=== PATIENT | female | born 1995 | race Caucasian/White ===

== ENCOUNTER 2024-06-19 19:21 | Inpatient (IN) | payer BC, SELFPAY ==
[2024-06-19 19:52] VITALS: BP 134/86; PULSE 108
[2024-06-19 20:55] LABS: Bilirubin Urine NEGATIVE (NEGATIVE); Blood Urine NEGATIVE (NEGATIVE); Clarity Urine CLEAR (CLEAR); Color Urine LT. YELLOW (YELLOW); Glucose Urine UA NEGATIVE (NEGATIVE); Ketones Urine NEGATIVE (NEGATIVE); Leukocyte Esterase Urine NEGATIVE (NEGATIVE); Nitrite Urine NEGATIVE (NEGATIVE); Protein Urine NEGATIVE (NEG/TRACE); Specific Gravity Urine <=1.005 (1.005-1.025); Urine Microscopic Indicated NO; Urobilinogen Urine 0.2 EU/dL (0.2-1.0)
[2024-06-19 21:01] LABS: Hematocrit 33.9 % (36.0-48.0); Hemoglobin 11.5 g/dL (12.0-16.0); Mean Corpuscular HGB Conc 33.9 g/dL (29.9-35.2); Mean Corpuscular Hemoglobin 30.7 pg (26.7-34.0); Mean Corpuscular Volume 90.4 fL (81.0-99.0); Mean Platelet Volume 10.8 fL (9.5-13.5); Platelet Count 203 10^3/uL (150-450); Red Blood Count 3.75 10^6/uL (4.20-5.40); White Blood Count 9.5 10^3/uL (4.0-11.0)
[2024-06-19 21:03] LABS: Amphetamine Screen Urine NEGATIVE (NEGATIVE); Barbiturates Screen Urine NEGATIVE (NEGATIVE); Benzodiazepines Screen Urine NEGATIVE (NEGATIVE); Buprenorphine Screen Urine NEGATIVE (NEGATIVE); Cannabinoid Screen Urine NEGATIVE (NEGATIVE); Cocaine Screen Urine NEGATIVE (NEGATIVE); Methadone Screen Urine NEGATIVE (NEGATIVE); Methamphetamines Screen Urine NEGATIVE (NEGATIVE); Opiate Screen Urine NEGATIVE (NEGATIVE); Oxycodone Screen Urine NEGATIVE (NEGATIVE); Phencyclidine Screen Urine NEGATIVE (NEGATIVE)
[2024-06-19 21:06] LABS: Tricyclic Antidepressant Urine POSITIVE (NEGATIVE)
[2024-06-19 21:45] VITALS: TEMP 36.8
[2024-06-19 23:31] VITALS: TEMP 36.5
[2024-06-20] VITALS (44 sets, daily range): BP systolic 97–148; BP diastolic 51–101; PULSE 86–116; TEMP 35.9–37
[2024-06-20] MEDS: ONDANSETRON PF 4 MG/2 ML VIAL IV (06:30)
--- NOTE | 2024-06-20 12:11 | P.OBHP_ITS ---
OB - H&P: HPI History of Present Illness Chief complaint: R/O LABOR : 1 Para: 0 Date of last menstrual period: 09/09/23 Gestational age based on last menstrual period: 38.3 Indications for induction: other (SROM 24 HOURS WITHOUT CONTRACTIONS) History of Present Dating criteria: LMP confirmed by 2nd trimester US care: good care Ultrasounds: normal mid trimester US Medical complications OB: none Labs Blood type: O (+) positive Rubella: nonimmune (EQUIVOCAL) RPR/VDLR: nonreactive GBS status: negative HBsAG: negative Review of Systems ROS Status of ROS: 10 or more systems reviewed and unremarkable except as noted in history and below PFSH PFSH Social History Little interest or pleasure in doing things: not at all Feeling down, depressed, or hopeless: not at all Meds Home Medications and Allergies Allergies Allergy/AdvReac Type Severity Reaction Status Date / Time Penicillins Allergy Intermediate Fever Verified 06/20/24 07:21 Exam Narrative Exam Narrative: DENIES PAIN, VOICING NO COMPLAINTS Constitutional Vital Signs, click to edit/add: Last Vital Signs Temp 98.1 F 06/20/24 10:17 Pulse 106 H 06/20/24 10:17 Resp 16 06/20/24 10:17 BP 131/86 06/20/24 10:17 Documenting provider has reviewed patient's vital signs: yes Common normals: no apparent distress, average body habitus, oriented x3, no limitations, healthy appearing, alert and well nourished [facility] Common normals: normocephalic and head/scalp atraumatic Eye Common normals: PERRL Pupil: accommodation reflex normal Neck & C-Spine Common normals: full ROM and supple Respiratory Common normals: normal respiratory effort Auscultation: clear to auscultation bilaterally Cardio Common normals: regular rate and regular rhythm GI Common normals: Normal to inspection, nondistended, normoactive bowel sounds present, soft to palpation and non-tender Common normals: no CVA tenderness Back & Pelvis Common normals: no thoracic nor lumbar tenderness Extremity Common normals: normal to inspection, full ROM and no calf tenderness Neuro Common normals: oriented x3, CN's II-XII intact bilaterally, moves all extremities, no focal motor deficits and no sensory deficits noted Motor exam: strength 5/5 throughout Psych Common normals: mental status grossly normal, thought process normal, cooperative, affect normal, speech normal and activity/motor behavior normal Results Labs Labs: Short CBC 06/19/24 Range/Units 20:42 WBC 9.5 (4.0-11.0) 10^3/uL Hgb 11.5 L (12.0-16.0) g/dL Hct 33.9 L (36.0-48.0) % Plt Count 203 (150-450) 10^3/uL Urine 06/19/24 Range/Units 19:40 Urine Color Lt. yellow (YELLOW) Urine Clarity Clear (CLEAR) Urine pH 6.0 (5.0-9.0) Ur Specific [place] <=1.005 A (1.005-1.025) Urine Protein Negative (NEG/TRACE) mg/dL Urine Glucose (UA) Negative (NEGATIVE) mg/dL OB - A/P Assessment and Plan (1) SROM (spontaneous rupture of membranes): Assessment and Plan: TERM WITH SROM FOR NEARLY 24 HOURS, GBS NEGATIVE, GOOD CARE, NO OBSTETICAL COMPLICATIONS IN . PATIENT REQUESTING MINIMAL INTERVENTION WITH LABOR. SHE WAS TOLD THAT I WOULD ONLY INTERVENE FOR MATERNAL OR OBSTETRIC INDICATIONS WHICH I DESCRIBED AND SHE WAS IN AGREEMENT WITH. Plan EXPLAINED TO PATIENT AND WHY THERE IS A NEED TO START PITOCIN LOW DOSE THE PATIENT IS NOT REMINGTON AND THOUGH SHE WANTS MINIMAL INTERVENTION ONE HAS TO WEIGH THE RISK BENEFIT RATIO OF PROLONGING THE INITIATION OF LABOR WHEN THE DEFENSE TO VAGINAL YUE IS NO LONGER INTACT SECONDARY TO SROM. PATIENT AND STATED UNDERSTANDING AND AGREEMENT TO PLAN.
[2024-06-20] MEDS: 0.9 % SODIUM CHLORIDE 1,000 ML 1000 ML IV (13:08)
[2024-06-20] MEDS: OXYTOCIN/0.9 % SODIUM CHLORIDE 10 UNITS/500 ML PLAST..BAG 6 UNIT IV (13:09)
[2024-06-20] MEDS: CLINDAMYCIN PHOSPHATE/D5W 900 MG/50 ML PREMIX 100 MG IV ×2 (13:09→20:17)
[2024-06-20] MEDS: 0.9 % SODIUM CHLORIDE 1,000 ML 125 ML IV ×2 (17:38→21:20)
[2024-06-20] MEDS: ROPIVACAINE HCL/PF 400 MG/200 ML PREMIX 6 MG EPIDURAL (18:17)
--- NOTE | 2024-06-20 19:00 | PM.OBPNL ---
Pain Control Pain control: epidural Pelvic Exam Dilation (cm): 3 Effacement (%): 100 Contractions Monitor mode: Internal Contraction frequency: 4 Contraction duration: 1 Contraction pattern: Irregular Contraction intensity: Moderate to Strong Intrauterine tone measurement: replaced external toco with IUPC station: 0 Amniotic membrane status: Leaking status: Category I Assessment and Plan Pitocin rate (mU/min): 10 Assessment: active labor (LATENT TO ACTIVE PHASE LABOR) Plan: continuous present management Comments: SROM, 23 HOURS WITHOUT CONTRACTIONS, GBS NEGATIVE, STARTED PITOCIN INDUCTION LOW DOSE, FHR CAT I. NOW IN LATENT TO ACTIVE PHASE LABOR. COMFORTABLE WITH EPIDURAL
[2024-06-21] VITALS (12 sets, daily range): BP systolic 115–141; BP diastolic 66–88; PULSE 94–115; TEMP 36.2–37
[2024-06-21] MEDS: LIDOCAINE VISCOUS 2% 15 ML SOLUTION 5 ML TOPICAL (01:15)
[2024-06-21] MEDS: OXYTOCIN/0.9 % SODIUM CHLORIDE 20 UNITS/1,000 ML PLAST..BAG 125 UNIT IV (02:00)
[2024-06-21] MEDS: BENZOCAINE/MENTHOL 85 GRAM SPRAY BOTTLE 1 APPLIC TOPICAL (03:45)
[2024-06-21] MEDS: GLYCERIN/WITCH HAZEL PADS 1 PAD TOPICAL (03:45)
[2024-06-21] MEDS: IBUPROFEN 400 MG TABLET 800 MG PO ×2 (08:59→17:26)
--- NOTE | 2024-06-21 14:27 | PM.OBPRCVD ---
Procedure events: Labor Augmentation and Prolonged Rupture of Membrane Intrapartal events: Prolonged Labor > 20 hours and Prolonged Latent Phase Delivery augmentation: pitocin Delivery monitor: external FHT and internal uterine Route of delivery: vacuum extraction Indication for instrumentation: other (head was turtling at plus three station, put the vacuum on to see if head was stuck or push not strong enough. with only minimal traction the head delivered with ease) Episiotomy Description: none L&D Laceration Description: none Estimated blood loss (mL): 250 Anesthesia type: Epidural Disposition: floor Complications: none Narrative: S/P PROM WITH NO CONTRACTIONS FOR 24 HOURS. PIT BEGUN AT 2 MIU AND REACHED A MAXIMUM OF 16 MIU. GBS WAS NEGATIVE. SHE HAD NO FEVER. SHE PUSHED WELL AND BROUGHT THE HEAD TO JUST BEFORE . AT THIS POINT THE HEAD WOULD DESCEND TO WITH PUSH BUT THEN RETRACT TO PLUS 3 STATION WHEN PUSH CEASED. IN ORDER TO ASSESS WHETHER THE HEAD WOULD FIT UNDER THE PELVIC BONE A VACUUM WAS APPLIED TIMES ONCE. WITH GENTLE TRACTION NOT ONLY DID THE HEAD DESCEND BUT DELIVERED. OF NOTE THERE WAS A LOOSE NUCHAL CORD AND A COMPOUND PRESENTATION OF THE LEFT ARM BENT AT THE ELBOW AND FOREARM AND HAND ACROSS THE CHEST. THE BOY WAS CRYING ON DELIVERY. SOON THE HEAD WAS DELIVERED THE VACUUM CUP WAS REMOVED. WHEN APPLIED, IT WAS PLACED OVER THE SAGITAL SUTURE IN THE MIDLINE ANTERIOR TO THE POSTERIOR FONTANELLE AND POSTERIOR TO THE ANTERIOR FONTANELLE. AFTER THE TORSO WAS EASILY DELIVERED AFTER THE VACUUM WAS REMOVED, THE CORD WAS MILKED TOWARDS THE INFANT AND THEN DOUBLY CLAMPED AND CUT AND THE FOB CUT THE CORD. THE MOUTH AND NARES WERE BULB SUCTIONED PRIOR TO CLAMPING THE CORD AND THE WAS DRIED OFF BY THE NURSE THE CORD WAS BEING MILKED. THE WAS PLACED SKIN TO SKIN ON MOM'S CHEST AND KEPT WARM. THE PLACENTA WAS MANUALLY REMOVED AFTER TWENTY MINUTES IT DID NOT DELIVER SPONTANEOUSLY. IT APPEARED INTACT. THE UTERUS WAS EXPLORED AND THERE WERE NO RETAINED POC. CORD BLOODS WERE OBTAINED. THE PLACENTA WAS NOT SENT TO PATHOLOGY. THE PERINEUM WAS INTACT. SEE NURSING NOTES FOR WEIGHT AND APGARS. THE INSTRUMENT AND SPONGE COUNT WAS CORRECT. Delivery date: 06/21/24 Gender: male presentation: vertex Placental delivery description: Spontaneous cord description: 3 Vessels, Nuchal Cord and Clamped/Cut Labor State Duration Labor - Stage 3 Duration: 18 minutes Total Length of Latency: 35 hours and 41 minutes
--- NOTE | 2024-06-21 14:40 | PM.OBPN ---
OB - PN: Subj Subjective Patient comments: no complaints, tolerating diet and flatus present status: doing well and well feeding status: exclusively Exam Narrative Exam Narrative: VOICING NO COMPLAINTS Constitutional Vital Signs, click to edit/add: Last Vital Signs Temp 97.2 F L 06/21/24 08:58 Pulse 96 H 06/21/24 08:58 Resp 16 06/21/24 04:01 BP 130/77 06/21/24 08:58 O2 Del Method Room Air 06/21/24 09:12 Documenting provider has reviewed patient's vital signs: yes Common normals: no apparent distress, average body habitus, oriented x3, no limitations, healthy appearing, alert and well nourished [facility] Common normals: normocephalic and head/scalp atraumatic Eye Common normals: PERRL Pupil: accommodation reflex normal Neck & C-Spine Common normals: full ROM and supple Respiratory Common normals: normal respiratory effort Auscultation: clear to auscultation bilaterally Cardio Common normals: regular rate and regular rhythm GI Common normals: Normal to inspection, nondistended, normoactive bowel sounds present, soft to palpation and non-tender Common normals: no CVA tenderness Back & Pelvis Common normals: no thoracic nor lumbar tenderness Extremity Common normals: normal to inspection, full ROM and no calf tenderness Neuro Common normals: CN's II-XII intact bilaterally, moves all extremities, no focal motor deficits and no sensory deficits noted Psych Common normals: mental status grossly normal, thought process normal, cooperative and affect normal Urinary Catheter Management Urinary Catheter Management Urethral: Cath placed during this visit: yes, but has since been removed by the nurse Insertion date: 06/20/24 Insertion time: 19:45 Removal date: 06/21/24 Removal time: 00:30 OB - PN: A/P Assessment and Plan (1) SROM (spontaneous rupture of membranes): Assessment and Plan: LABOR HAD TO BE INDUCED WITH PITOCIN PATIENT WENT 24 HOUR WITH NO CONTRACTIONS. DID REMAIN AFEBRILE WITH NO SUSPICION OF CHORIOAMNIONITIS. PATIENT WENT ON TO HAVE A VACUUM ASSIST VAGINAL DELIVERY WITH NO PERINEAL REPAIR NEEDED Plan - Vaginal Delivery day: 0 Plan: routine care Time Spent with Patient Time: Total time spent is greater than 50% in coordination of care (as documented) at patient's floor/unit and/or counseling patient: Total time spent with greater than 50% in coordination of care (as documented) at patient's floor/unit and/or counseling patient: less than 15 minutes
[2024-06-22 01:00] VITALS: TEMP 36.8
[2024-06-22 01:05] VITALS: BP 127/86; PULSE 93
[2024-06-22] MEDS: IBUPROFEN 400 MG TABLET 800 MG PO ×2 (01:06→09:57)
[2024-06-22 08:20] LABS: Basophils Percent Auto 0.3 % (0.2-2.0); Eosinophils Absolute Auto 0.4 10^3/uL (0.0-0.7); Eosinophils Percent Auto 3.9 % (0.9-7.0); Hematocrit 31.9 % (36.0-48.0); Hemoglobin 10.5 g/dL (12.0-16.0); Immature Granulocytes Abs Auto 0.05 10^3/uL (0.00-0.03); Immature Granulocytes Pct Auto 0.5 % (0.0-0.5); Lymphocytes Absolute Auto 1.9 10^3/uL (1.2-3.8); Lymphocytes Percent Auto 17.8 % (20.5-60.0); Mean Corpuscular HGB Conc 32.9 g/dL (29.9-35.2); Mean Corpuscular Hemoglobin 30.4 pg (26.7-34.0); Mean Corpuscular Volume 92.5 fL (81.0-99.0); Mean Platelet Volume 10.1 fL (9.5-13.5); Monocytes Absolute Auto 0.9 10^3/uL (0.3-0.8); Monocytes Percent Auto 8.6 % (1.7-12.0); Neutrophils Absolute Auto 7.4 10^3/uL (1.4-6.5); Neutrophils Percent Auto 68.9 % (43.0-75.0); Platelet Count 149 10^3/uL (150-450); Red Blood Count 3.45 10^6/uL (4.20-5.40); Red Cell Distribution Width 12.4 % (11.0-15.0); White Blood Count 10.7 10^3/uL (4.0-11.0)
[2024-06-22 08:48] VITALS: BP 136/78; PULSE 85
[2024-06-22] MEDS: DOCUSATE SODIUM 100 MG CAPSULE PO (09:57)
--- NOTE | 2024-06-22 12:43 | PM.OBDS ---
DS: Providers Provider Date of admission: 06/19/24 19:21 Primary care physician: Non-Staff Physician, Admitting clinician: Gia Guerrero Consults: 06/20/24 Consult to Anesthesiology Routine Consulting Provider: Isidro Cooper Reason for consultation: epidural Has provider been notified: No Discharging clinician: Gia Guerrero Anticipated date of discharge: 06/22/24 DS: Diagnosis Discharge Diagnosis (1) (spontaneous vaginal delivery): Assessment and plan: afebrile, vss, breast feeding, eliminating normally, no perineal repair, ambulating, eating, passing flatus Plan discharge home OB - DS: Summary Hospital Course Hospital Course: uncomplicated Time spent discussing smoking cessation with patient: 3 to 10 minutes Peripartum Data - Vaginal Delivery Laceration description: none Complications complications: none Infant Delivery method: assisted vaginal delivery Gender: male Status at Discharge Cognitive/behavioral status at discharge: wnl Functional status at discharge: independent ambulation Overall status at discharge: patient is progressing back to baseline Time Spent with Patient Time attestation: Total time spent providing and/or coordinating discharge services: Time spent: less than 30 minutes Exam Constitutional Vital Signs, click to edit/add: Last Vital Signs Temp 98.3 F 06/22/24 01:00 Pulse 85 06/22/24 08:48 Resp 18 06/21/24 17:28 BP 136/78 06/22/24 08:48 O2 Del Method Room Air 06/22/24 01:00 Common normals: no apparent distress, oriented x3, alert and well nourished General appearance: cooperative, comfortable and well kempt Orientation/consciousness: Yes awake, Yes oriented to person, Yes oriented to place and Yes oriented to time [facility] Common normals: normocephalic and head/scalp atraumatic Eye Common normals: PERRL Pupil: accommodation reflex normal Neck & C-Spine Common normals: full ROM and supple Respiratory Common normals: normal respiratory effort Auscultation: clear to auscultation bilaterally Cardio Common normals: regular rate and regular rhythm GI Common normals: Normal to inspection, nondistended, normoactive bowel sounds present, soft to palpation and non-tender Common normals: no CVA tenderness Back & Pelvis Common normals: no thoracic nor lumbar tenderness Extremity Common normals: full ROM and no calf tenderness Neuro Common normals: CN's II-XII intact bilaterally, moves all extremities, no focal motor deficits and no sensory deficits noted Psych Common normals: thought process normal, cooperative, affect normal, speech normal and activity/motor behavior normal DS: Data Data Completed and Pending Labs on day of discharge: Labs from last 24 hours 06/22/24 06/19/24 08:15 19:40 WBC 10.7 RBC 3.45 L Hgb 10.5 L Hct 31.9 L MCV 92.5 MCH 30.4 MCHC 32.9 RDW 12.4 Plt Count 149 L MPV 10.1 Neut % (Auto) 68.9 Lymph % (Auto) 17.8 L [place] % (Auto) 8.6 Eos % (Auto) 3.9 Baso % (Auto) 0.3 Neut # (Auto) 7.4 H Lymph # (Auto) 1.9 [place] # (Auto) 0.9 H Eos # (Auto) 0.4 Baso # (Auto) 0.0 Abs Immat Gran (auto) 0.05 H Imm/Tot Granulo (auto) 0.5 Urine Opiates Screen Negative Ur Buprenorphine Scrn Negative Ur Oxycodone Screen Negative Urine Methadone Screen Negative Ur Barbiturates Screen Negative U Tricyclic Antidepress Positive A Ur Phencyclidine Scrn Negative Ur Amphetamines Screen Negative U Methamphetamines Scrn Negative U Benzodiazepines Scrn Negative Urine Cocaine Screen Negative U Cannabinoids Screen Negative Discharge Plan Discharge Disposition: Home, Self-Care Condition: Good Assessment: exam nonfocal, appropriate for discharge Health Concerns: none Plan of Treatment: discharge home Discharge Medications: Continued amitriptyline 25 mg tablet 25 mg PO DAILY ondansetron HCl 8 mg tablet 8 mg PO Q8H PRN (Reason: nausea and vomiting) Activity: resume usual activities as tolerated Activity Detail: no sex six weeks, walking only exercise six weeks, only lift baby six weeks, limit driving 4 weeks, may climb stairs, may use tub or shower Diet: regular diet Print Language: [place]ian Forms: Vaginal Delivery - Discharge, Portal Instructions Follow Up Appointments: Follow up with on Saturday 06/23 @ 9:00 am here in [facility] Discharge location: home
== END 2024-06-22 14:20 | disposition home or self-care (01) | DRG 807 ==
PROVIDERS: Admitting Provider Obstetrics & Gynecology; Visit Provider Obstetrics & Gynecology
DX: O42.92 Full-term premature rupture of membranes, unspecified as to length of time between rupture and onset of labor (principal); Z37.0 Single live birth; O63.0 Prolonged first stage (of labor); Z3A.38 38 weeks gestation of pregnancy; O69.81X0 Labor and delivery complicated by cord around neck, without compression, not applicable or unspecified; O32.6XX0 Maternal care for compound presentation, not applicable or unspecified
CPT/HCPCS: 36415; 51702; 59050; 59410; 80307; 81003; 85025; 85027; 86850; 86900; 86901; J0736; J2405; J2795

== ENCOUNTER 2024-06-23 08:16 | Outpatient (OUT) | payer BC, SELFPAY ==
--- NOTE | 2024-06-23 11:35 | PC.NURSE ---
Jalen Shankar and 2 day old Kelton arrive for bili level and follow up. Parents admit to being tired and yet doing well. Vonnie voices no concerns for herself, just that infant is really yellow today Kelton with VSS and assessment WNL. Parents report 2 wets and 1 large dark stool since discharge. Vonnie does voice concern with latching as nipples are becoming tender and scabbed area's on nipples bilaterally. Weight is 6.8% below weight. Baby fed every 2 hours from 12mn to 0530. No feeding from [id number]. Discussed routinely feeding every 1-3 hours, using both breasts at each feed and keeping infant awake for feeds. Deep latching to encouraged more milk removal. Parents interested and asking good questions. Serum bili drawn per this sql report writer and to lab at 0925. to breast, demo of deeper latch, with mom able to demo with confidence, ability to latch with more comfort and better swallows from . Nurses 25 minutes total. Vonnie with VSS and assessment WNL. Discusses nipple healing with coconut oil and use of silverettes. Will return 06/28/2024 1030 for further care. Aware to contact LC if nipple tenderness increases. [address] Quevedo with results of serum bili. Plan to repeat in AM. Parents to keep baby skin to skin, feed every 1-2 hours, small frequent feeds and to monitor output. Parents verbalize understanding. Given order for lab draw for hilda Melara 06/24/2024. Leaves ambulatory for home.
[2024-06-23 11:36] VITALS: BP 134/84; PULSE 86; TEMP 36.8; O2SAT 96
== END 2024-06-23 10:30 | disposition home or self-care (01) ==
LOC: FBCO 08:17
PROVIDERS: Visit Provider Obstetrics & Gynecology
DX: Z39.1 Encounter for care and examination of lactating mother (principal)

== ENCOUNTER 2024-06-28 08:39 | Outpatient (OUT) | payer BC, SELFPAY ==
--- NOTE | 2024-06-28 11:20 | PC.NURSE ---
Jalen Shankar, and 7 day old Kelton arrive for support. Parents are smiling and pleased with , his feeding. weight obtained and is 2 oz down from weight. Multiple wet and stool diapers reported daily as well as a wet and stool diaper changed with weight. Infant to breast, mom latches well independently. Infant with audible swallows, strong let down noted. Infant feeds well fo r12 minutes, before pulling off. Burped and sleeps. Parents report baby last fed 1 hour prior to arrival for visit. Vonnie asks general questions about , when to initiate bottles, and pumping for small stash . Answers given to her satisfaction. Family leaves for appointment with Dr Nixon at this time. No further concerns noted. Aware to call for concerns and aware of [facility] group for support as well.
== END 2024-06-28 11:00 | disposition home or self-care (01) ==
LOC: FBCO 08:41
PROVIDERS: Visit Provider Obstetrics & Gynecology
DX: Z39.1 Encounter for care and examination of lactating mother (principal)
CPT/HCPCS: G0463